=== PATIENT | male | born 1965 | race Caucasian/White ===

== ENCOUNTER → 2023-12-31 06:19 | Day surgery (SDC) | payer OTHER, SELFPAY | LOC: GI 06:19 | PROVIDERS: ATTENDING PHYSICIAN Internal Medicine | DX: K57.30 Diverticulosis of large intestine without perforation or abscess without bleeding (principal); K64.9 Unspecified hemorrhoids; R19.7 Diarrhea, unspecified; K22.2 Esophageal obstruction; K31.7 Polyp of stomach and duodenum; K22.89 Other specified disease of esophagus; R13.10 Dysphagia, unspecified | CPT/HCPCS: 45380; 43249; 43239; 88305; 88342 ==

== ENCOUNTER → 2024-02-25 11:13 | Outpatient (REF) | payer OTHER, SELFPAY | LOC: HWRAD 11:13 | PROVIDERS: FAMILY PHYSICIAN Family Medicine | DX: K90.9 Intestinal malabsorption, unspecified (principal) | CPT/HCPCS: 74177; Q9967 ==

== ENCOUNTER → 2024-03-05 13:05 | Outpatient (REF) | payer OTHER, SELFPAY | LOC: RAD 13:05 | PROVIDERS: ATTENDING PHYSICIAN Family Medicine | DX: M79.643 Pain in unspecified hand (principal) | CPT/HCPCS: 73110; 73130 ==